=== PATIENT | male | born 1960 | race Caucasian/White ===

== ENCOUNTER 2016-09-23 05:26 | Emergency (ER) | payer OTHER ==
[~2016-09-23] VITALS: Ht 175.3 cm; Wt 90.1 kg
[2016-09-23 05:45] VITALS: BP 129/78; PULSE 66; RESP 17; O2SAT 95
[2016-09-23 05:51] LABS: BASOPHILS % (AUTO) 0.4 % (0-3); EOSINOPHILS % (AUTO) 2.9 % (0-5); MONOCYTES % (AUTO) 8.6 % (4-12); Mean Corpuscular Hemoglobin 31.7 pg (27.0-35.0); Mean Corpuscular Volume 89.8 fL (81-100); NEUTROPHILS % (AUTO) 49.5 % (40-74); Platelet Count 288 bil/L (150-400)
--- NOTE | 2016-09-23 06:00 | ED.REPORT ---
HPI-Stroke / CVA Sep 23, 2016 ED Provider: Christopher Brennan MD A 55 year old male with a history of colon polyps, hemorrhoids, and inguinal hernia s/p hernia surgery on 09/17/16 presents to the ED via EMS with left- sided weakness after waking up this morning at approximately 0445. He was diaphoretic when he woke up but felt fine while laying in bed. However, when he went to get up he collapsed. He went to bed at 2300 last night and woke up to pee sometime in the middle of the night. The patient is also exhibiting expressive aphasia. Per EMS his vitals were stable en route. The patient is normally healthy. Nursing Notes Stated Complaint: CODE STROKE Chief Complaint: Stroke Symptoms Nursing Notes Reviewed: Yes Allergies: Coded Allergies: meperidine (Verified Allergy, Intermediate, RASH, 09/23/16) Scheduled Tamsulosin ER (Tamsulosin ER) 0.4 Mg Cap.er.24h 0.4 MG PO HS (Reported) General Time Seen by Provider: 05:30 Chief Complaint Weakness Left-sided Hx Obtained From: Patient, EMS Arrived By: Ambulance Time last known well 2300 hours Sudden in Onset?: Yes Context of Onset: During sleep Symptom Duration: Since onset Progression Since Onset: Gradually improving Severity: Current: No pain currently Severity: Maximum: No pain Associated with: Reports: Speech problem Pertinent Negative: Relieved by nothing Context: Immunizations Unknown Recent Healthcare: Recent doctor visit Similar Sx Previous: No Risk Factors NIH Stroke Scale Level of Consciousness: Alert and responsive (0) Ask Month & Age: Both questions right (0) Open/Close Eyes/Hand Aquatic Physiotherapist: Performs both tasks (0) Horizontal EO Movements: Partial gaze palsy (1) Visual Su: Partial hemianopsia (1) Facial Palsy: Partial paral, lower (2) Right Arm Motor Drift (10s): No drift 10 sec (0) Left Arm Motor Drift (10s): No movement (4) Right Leg Motor Drift (5s): No drift 5 sec (0) Left Leg Motor Drift (5s): Drift, hits bed (2) Limb Ataxia FNF/Heel-Bloom: Ataxia in 2 limbs (2) Sensation (Arms/Legs/Face): Complete sensory loss (2) Language Aphasia: Loss fluency ID matls (1) Dysarthria: Slurring intelligible (1) Extinction/Inattention: Prfound sarah beth-inattent (2) NIHSS Score: 18 Time NIHSS Performed: 05:46 Date NIHSS Performed: Sep 23, 2016 Past Medical History Past Medical History Colon polyps Hemorrhoids Hernia Past Surgical History Colonoscopy Inguinal hernia repair 09/17/16 Smoking History Never Smoker Ambulatory Status Independent Review of Systems Constitutional: Denies: Fever Skin: Reports Diaphoresis Neurologic: Reports: Focal weakness (Left-sided), Slurred speech Complete sys rev & neg: except as marked. Physical Exam Initial Vital Signs Vital Signs (First) Date Time Temp Pulse Resp B/P Pulse Ox O2 Delivery O2 Flow Rate FiO2 09/23/16 05:45 36.4 66 17 129/78 95 Room Air Initial VS: Reviewed, Vital signs normal ENT: Mucous membranes moist, Conjunctiva normal Abdomen / GI: Soft, Non-tender Psychiatric: Mood/affect normal, Behavior normal General/Constitutional: Awake, Alert Head / Eyes: Atraumatic, Normocephalic Acuity / Tonometry: Positive: Visual acuity abnormal L Partial gaze palsy Respiratory / Chest: Atraumatic, Breath sounds NL, Breath sounds = bilat, No respiratory distress, No rales, No rhonchi, No wheezing, No retractions, No stridor, No chest tenderness, No chest wall deformity, No crepitus Cardiovascular: Heart rate NL, Regular rhythm, Heart sounds NL, No gallop, No murmurs, No rubs, Cap refill not delayed, Peripheral circulation NL Neurologic: Oriented X3 Focal Weakness: Positive: Weakness diffuse L See NIH stroke scale Skin: Atraumatic Healing surgical incision with hematoma and surrounding erythema Interpretation & Diagnostics Lab Results Interpretation Result Diagram: 09/23/16 0543 Test 09/23/16 05:43 Prothrombin Time 10.0sec (8.1-12.5) Prothromb Time International Ratio 0.94ratio Activated Partial Thromboplast Time 24.9sec (22.8-33.0) Sodium Level 139mEq/L (134-144) Potassium Level 3.9mEq/L (3.5-5.2) Chloride Level 100mEq/L (97-108) Carbon Dioxide Level 22mmol/L (18-29) Blood Urea Nitrogen 20mg/dL (6-24) Creatinine 0.88mg/dL (0.76-1.27) Estimat Glomerular Filtration Rate 96mL/min (>59) Glucose Level 144mg/dL (60-99) Calcium Level 9.1mg/dL (8.5-10.1) Total Bilirubin 0.6mg/dL (0.0-1.2) Aspartate Amino Transf (AST/SGOT) 28U/L (0-50) Alanine Aminotransferase (ALT/SGPT) 34U/L (0-44) Alkaline Phosphatase 64U/L (25-150) Troponin T 0.010ug/L (0.0-0.011) Total Protein 6.9g/dL (6.4-8.4) Albumin 3.6g/dL (3.4-5.0) Lab values outside NL range: no clinical significance. ECG Interpretation ECG Interpretation: Sinus rhythm rate 76 Time: 06:21 Interpreted by: ED physician Normal ECG Interpretation: No acute ischemic changes CT Head Interpretation Conclusion: Normal head CT. Transmitted to the ED by night-shift radiologist Jaison Avalos MD Study: Head CT no contrast Interpretation / Wet Read by: Interpret - Radiologist, Discussed w radiologist Re-Eval/Medical Decision Med Decision/Clinical Course 55-year-old male who was last known normal at 2300 hrs. last p.m. He awakens sometime during the night to go the bathroom and does not recall having any trouble walking. He really awakened at 0445 hours this morning and did not feel well and could not walk. Therefore his last known normal time for sure was 6-1/2 hours prior to arrival here, but may be a couple hours later than that based on him getting up to go to the bathroom during the night. He does original NIH stroke scale was 20 with complaints soft for left facial droop, left visual field cuts, profound sarah beth-inattention to the left side, left arm weakness and numbness, left leg weakness and numbness, slurred speech. CT scan of the brain was read here is normal. Labs are normal. He is also had recent right inguinal hernia repair about 5 days ago. There is a small hematoma at the site. His case was discussed with Dr. Martines, [place] [facility] [place] stroke neurologist. He was felt not to be a candidate for TPA because of the last known normal time and his recent surgery, but she felt that he could be an IR candidate. His care was transferred to Dr. юлия sifuentes at change of shift who will make final disposition the [facility] [facility] helicopter transport to [place]. Re-Evaluation/Progress #1: Time of Eval: 06:05 Re-Evaluation/Progress Note: Care transferred to Dr. Holcomb at change of shift. Re-Evaluation/Progress #2: Time of Eval: 06:31 Re-Evaluation/Progress Note: Discussed case with pt and regarding transfer. They understand and agree with plan for transfer. Consultation : Consulted With: Neurosurgery Call Returned at: 06:03 Department Assistant: Agrees with eval, Agrees with plan Note: [facility] stroke neurologist Dr. Martines. Recommends intervention at [place] emergently for thromectomy after reviewing CT. Counseled Regarding: Diagnosis, Lab results, Need for transfer Patient Discharge & Departure Shift Change Sign-Out Patient Care Transferred: Yes Discussed Complaint(s): Yes Laboratory Evaluation: Ordered, not yet done Imaging Studies: Imaging discussed Response to Therapy: Improved Impression: Primary Impression: Embolic stroke Precerebral and cerebral artery: unspecified cerebral artery Qualified Code: I63.40 - Cerebral infarction due to embolism of unspecified cerebral artery Disposition: Transfer, Acute Care Facility Discharge Condition All VS Reviewed: Yes Condition: Stable Referrals: Charlie Painting MD (PCP) Care Transferred to: Dr. Holcomb Care Transferred at: 06:15 Crit Care Except Billable Proc Time Spent: 30-74 minutes Services Performed: Patient management by me, Time spent at bedside, Reviewing test results, Reviewing imaging, Discussing patient care, Documentation in record Scribe Attestation Portions of this note were transcribed by Mica William. I, Dr. Brennna, personally performed the history, physical exam, and medical decision-making; I reviewed and confirmed the accuracy of the information in the transcribed note Signed by: Brian Shay, 09/23/2016, 06:18 Portions of this note were transcribed by Cornelius Hyman. Dr. Aicha Jean personally performed the history, physical exam and medical decision-making; I reviewed and confirmed the accuracy of the information in the transcribed note. Signed by Cornelius Hyman - Brian - 09/23/16 - [id number] copies to: Charlie Painting MD, Howard L MD Sep 23, 2016 06:00 MICA WILLIAM Sep 23, 2016 06:18 CORNELIUS HYMAN Sep 23, 2016 06:21
[2016-09-23 06:09] LABS: INR 0.94 ratio
[2016-09-23] MEDS ORDERED: TAMS0.4C29 PO (06:11)
[2016-09-23 06:30] LABS: TROPONIN T 0.01 ug/L (0.0-0.011)
--- NOTE | 2016-09-23 09:56 | DRSVH ---
PROCEDURE: CT BRAIN WITHOUT CONTRAST ([id number]) INDICATIONS: right side weakness TECHNIQUE: Noncontrast 4.5 mm thick angled axial sections acquired from the foramen magnum to the vertex, with c oronal reformats. COMPARISON: None. FINDINGS: Image quality: Excellent. CSF spaces: Basal cisterns are patent. No extra-axial fluid collections. Ventricles are normal in size and shape. Brain: No midline shift. No intracranial masses or hemorrhage. Cotto-white matter interface is norm al. Skull and face: Calvarium and visualized facial bones are intact, without suspicious lesions. Sinuses: Visualized sinuses and mastoids are clear. IMPRESSION: No acute intracranial disease process. The Dictated by: Lamar Brito MD, PhD on 09/23/2016 at 9:54 Approved by: Lamar Brito MD, PhD on 09/23/2016 at 9:54
== END 2016-09-23 07:46 | disposition short-term general hospital (02) ==
LOC: SED 05:26 → EDBD 05:26 → SED 07:46
DX: I63.40 Cerebral infarction due to embolism of unspecified cerebral artery (principal); R29.718 NIHSS score 18; Z88.5 Allergy status to narcotic agent